=== PATIENT | male | born 1950 | race African-American/Black ===

== ENCOUNTER 2019-05-13 05:05 | Inpatient (IN) | payer MEDICARE ==
[2019-05-09 14:58] LABS: BASOPHILS # (AUTO) 0.1 (0.0-0.1); BASOPHILS % 0.8 % (0.0-1.0); EOSINOPHILS # (AUTO) 0.4 (0.0-0.4); EOSINOPHILS % 5.5 % (0.0-6.0); HEMATOCRIT 45.2 % (38.2-49.6); HEMOGLOBIN 14.6 g/dL (14.0-18.0); LYMPHOCYTES # (AUTO) 2.1 (1.0-3.2); LYMPHOCYTES % 28.5 % (18.0-39.1); MEAN CORPUSCULAR HEMOGLOBIN 28.6 pg (28-32); MEAN CORPUSCULAR HGB CONC 32.3 g/dL (31-35); MEAN CORPUSCULAR VOLUME 88.6 fL (81-99); MONOCYTES # (AUTO) 0.9 (0.2-0.8); MONOCYTES % 11.8 % (4.4-11.3); NEUTROPHILS # (AUTO) 3.9 (2.1-6.9); NEUTROPHILS % 53.1 % (38.7-80.0); PLATELET COUNT 184 x10e3/uL (140-360); RED CELL DISTRIBUTION WIDTH 13.7 % (11.7-14.4)
[2019-05-09 15:16] LABS: ANION GAP 13.1 mmol/L (8-16); BLOOD UREA NITROGEN 20 mg/dL (7-26); BUN/CREATININE RATIO 23 (6-25); CALCIUM 9.6 mg/dL (8.4-10.2); CARBON DIOXIDE 23 mmol/L (22-29); CHLORIDE 105 mmol/L (98-107); CREATININE, SERUM 0.87 mg/dL (0.72-1.25); EST GLOMERULAR FILTRATION RATE > 60 ML/MIN (60-); GLUCOSE 95 mg/dL (74-118); POTASSIUM 4.1 mmol/L (3.5-5.1); SODIUM 137 mmol/L (136-145)
--- NOTE | 2019-05-09 15:25 | Diagnostic Imaging Report ---
EXAM: CHEST 2 VIEWS, PA and lateral DATE: 05/09/2019 Time stamp on exam: 2:00 PM INDICATION: Preoperative for a urologic procedure COMPARISON: None FINDINGS: LINES/TUBES: None LUNGS: No consolidations or edema. PLEURA: No effusions or pneumothorax. HEART AND MEDIASTINUM: Normal size and contour. BONES AND SOFT TISSUES: No acute findings. Mild degenerative changes of the spine. IMPRESSION: No acute thoracic abnormality. Signed by: Dr. Nicolás Minaya DO on 05/09/2019 3:21 PM
[~2019-05-13] VITALS: Ht 170.2 cm; Wt 76.7 kg
[~2019-05-13 05:05] MED LIST: DOXAZOSIN MESYLA2 MG PO; LISINOPRIL10 MG PO; METFORMIN HCL850 MG PO
--- OUTSIDE RECORDS SUMMARY | 2019-05-13 05:13 | XMS REPORT ---
Author Author [facility] Address Unknown Phone Unavailable Care Team Providers Care Custom Motorcycle Painter Name Role Phone SHELLIE BURT Unavailable Unavailable Problems This patient has no known problems. Allergies, Adverse Reactions, Alerts This patient has no known allergies or adverse reactions. Medications This patient has no known medications. Results Test Description Test Time Test Comments Text Results Atomic Results Result Comments CHEST 2 VIEWS 2019-05-09 15:20:00 [place] [address] Patient Name: NALLELY CORREA MR #: [id number] : 1950 Age/Sex: 68/M Req #: [id number] [facility] Physician: Ordered by: SHELLIE BURT MD Report #: [id number] Location: OR Room/Bed: Procedure: [id number] DX/CHEST 2 VIEWS Exam Date: 05/09/19 Exam Time: 1400 REPORT STATUS: Signed EXAM: CHEST 2 VIEWS, PA and lateral DATE: 05/09/2019 Time stamp on exam: 2:00 PM INDICATION: Preoperative for a urologic procedure COMPARISON: None FINDINGS: LINES/TUBES: None LUNGS: No consolidations or edema. PLEURA: No effusions or pneumothorax. HEART AND MEDIASTINUM: Normal size and contour. BONES AND SOFT TISSUES: No acute findings. Mild degenerative changes of the spine. IMPRESSION: No acute thoracic abnormality. Signed by: Dr. Adis Minaya DO on 05/09/2019 3:21 PM Dictated By: ADIS MINAYA DO 1521 Transcribed By: NIEVES on 05/09/19 1521 COPY TO: SHELLIE BURT MD
[2019-05-13] MEDS ORDERED: CEFTRIAXONE SOD 1 GM/NS 50 ML 50 ML IV ONE (05:18)
[2019-05-13] MEDS ORDERED: GENTAMICIN 80MG/NS 100 ML 200 ML IV ONE (05:18)
[2019-05-13] MEDS ORDERED: IOPAMIDOL 610MG/1ML 300 MG/ML VIAL IV ONE (06:17)
[2019-05-13] MEDS ORDERED: B&O 60MG R/S 60 MG SUPP PR ONE (06:17)
[2019-05-13] MEDS ORDERED: CEFTRIAXONE SOD 1 GM/NS 50 ML 50 ML IV SCH (08:45)
[2019-05-13] MEDS ORDERED: DIPHENHYDRAMINE HCL 25 MG CAP PO PRN (08:45)
[2019-05-13] MEDS ORDERED: ACETAMINOPHEN/CODEINE 300MG - 30MG TAB PO PRN (08:45)
[2019-05-13] MEDS ORDERED: B&O 60MG R/S 60 MG SUPP PR PRN (08:45)
[2019-05-13] MEDS ORDERED: ONDANSETRON HCL INJ 2MG/ML 2ML 2 MG/ML VIAL IV PRN (08:45)
[2019-05-13] MEDS: PHENAZOPYRIDINE HCL 100 MG TAB PO SCH ×3 (09:00→18:01)
[2019-05-13] MEDS: DOCUSATE SODIUM 100 MG CAP PO SCH ×2 (09:00→18:01)
[2019-05-13] MEDS ORDERED: HYDROMORPHONE 2MG/ML 2 MG/ML ML ONE (09:04)
[2019-05-13 10:00] VITALS: BP 151/83
--- NOTE | 2019-05-13 10:00 | NUR ---
received to rm aaox3, o2 @ 2l nc, ivf infusing to r hand 20g no ss of infiltration noted, continuous bladder irrigation to 24f schmitt with traction with pink tinged urine noted, deneis pain at thsi time call light in reach will continue ot monitor
[2019-05-13 10:50] VITALS: BP 151/83
[2019-05-13 10:55] LABS: BASOPHILS % 0.3 % (0.0-1.0); EOSINOPHILS # (AUTO) 0.1 (0.0-0.4); EOSINOPHILS % 0.5 % (0.0-6.0); HEMATOCRIT 45.1 % (38.2-49.6); HEMOGLOBIN 14.8 g/dL (14.0-18.0); LYMPHOCYTES # (AUTO) 1.3 (1.0-3.2); LYMPHOCYTES % 11.6 % (18.0-39.1); MEAN CORPUSCULAR HEMOGLOBIN 29.4 pg (28-32); MEAN CORPUSCULAR HGB CONC 32.8 g/dL (31-35); MEAN CORPUSCULAR VOLUME 89.7 fL (81-99); MONOCYTES # (AUTO) 0.3 (0.2-0.8); MONOCYTES % 3.1 % (4.4-11.3); NEUTROPHILS # (AUTO) 9.4 (2.1-6.9); NEUTROPHILS % 84.1 % (38.7-80.0); PLATELET COUNT 205 x10e3/uL (140-360); RED BLOOD COUNT 5.03 x10e6/uL (4.3-5.7); RED CELL DISTRIBUTION WIDTH 13.9 % (11.7-14.4)
[2019-05-13 11:11] LABS: BLOOD UREA NITROGEN 23 mg/dL (7-26); BUN/CREATININE RATIO 22 (6-25); CALCIUM 9.2 mg/dL (8.4-10.2); CARBON DIOXIDE 28 mmol/L (22-29); CHLORIDE 106 mmol/L (98-107); CREATININE, SERUM 1.03 mg/dL (0.72-1.25); EST GLOMERULAR FILTRATION RATE > 60 ML/MIN (60-); GLUCOSE 147 mg/dL (74-118); SODIUM 142 mmol/L (136-145)
[2019-05-13] MEDS: SOD CHL 0.45%/POT CHL 20MEQ 1,000 ML IV SCH ×2 (11:36→22:09)
[2019-05-13] MEDS ORDERED: DEXTROSE 50% SYRINGE 50 ML IV PRN (11:45)
--- NOTE | 2019-05-13 11:47 | NUR ---
spoke with Dr. Jones re: admit for medical management, continue of home medications and sliding scale, new orders noted,
[2019-05-13 12:09] VITALS: BP 130/72
[2019-05-13] MEDS: INSULIN LISPRO 100 UNIT/1 ML 3ML VIAL SQ SCH ×3 (13:05→21:00)
[2019-05-13] MEDS ORDERED: SEVOFLURANE INHAL SOLN 250 ML PEN BTL ONE (13:35)
[2019-05-13] MEDS ORDERED: PROPOFOL IV EMULSION 10 MG/ML 20 ML VIAL ONE (13:35)
[2019-05-13] MEDS ORDERED: LIDOCAINE HCL 2% LOCAL INJ 5 ML SDV VIAL INJ ONE (13:35)
[2019-05-13] MEDS ORDERED: ONDANSETRON HCL INJ 2MG/ML 2ML 2 MG/ML VIAL ONE (13:35)
[2019-05-13] MEDS ORDERED: DEXAMETHASONE SOD PHOS INJ 4 MG/ML VIAL ONE (13:35)
[2019-05-13 17:08] VITALS: BP 149/78
[2019-05-13] MEDS ORDERED: FENTANYL CITRATE/PF 100MCG/2 ML INJ ONE (18:53)
[2019-05-13] MEDS ORDERED: MIDAZOLAM HCL 2 MG/2 ML VIAL ONE (18:53)
[2019-05-13 19:35] VITALS: BP 124/65
[2019-05-13 20:00] VITALS: BP 124/65
--- NOTE | 2019-05-13 21:15 | NUR ---
PATIENT CONDITION STABLE WITHOUT RESPIRATORY DISTRESS, HE DENIES PAIN. OATES CATHETER PATIENT AND INTACT, CONTINUOUS BLADDER IRRIGATION INFUSING, WITH URINE COLOR NIÑO RED WITHOUT CLOTS. CALL LIGHT WITHIN EASY REACH, FAMILY MEMBERS AT THE BEDSIDE.
[2019-05-13] MEDS: DOXAZOSIN MESYLATE 2 MG TAB PO SCH (22:08)
[2019-05-14] VITALS (7 sets, daily range): BP systolic 102–137; BP diastolic 53–67
--- NOTE | 2019-05-14 01:43 | NUR ---
PATIENT IS ASLEEP, HE'S EASY TO AROUSE. NO RESPIRATORY DISTRESS OBSERVED, HE DENIES PAIN. CALL LIGHT WITHIN EASY REACH.
--- NOTE | 2019-05-14 04:08 | NUR ---
WALKING ROUNDS MADE, PATIENT SOUNDLY ASLEEP. HE'S EASY TO AROUSE, NO RESPIRATORY DISTRESS OBSERVED. URINE COLOR LIGHT PINK WITHOUT CLOTS, CBI INFUSING ORDERED.
[2019-05-14] MEDS ORDERED: CEFTRIAXONE SOD 1 GM/NS 50 ML 50 ML IV SCH (06:00)
[2019-05-14 06:30] LABS: ANION GAP 12.1 mmol/L (8-16); BLOOD UREA NITROGEN 16 mg/dL (7-26); BUN/CREATININE RATIO 17 (6-25); CALCIUM 9.2 mg/dL (8.4-10.2); CARBON DIOXIDE 24 mmol/L (22-29); CHLORIDE 105 mmol/L (98-107); CREATININE, SERUM 0.96 mg/dL (0.72-1.25); EST GLOMERULAR FILTRATION RATE > 60 ML/MIN (60-); GLUCOSE 152 mg/dL (74-118); POTASSIUM 4.1 mmol/L (3.5-5.1); SODIUM 137 mmol/L (136-145)
[2019-05-14 06:39] LABS: BASOPHILS % 0.1 % (0.0-1.0); EOSINOPHILS # (AUTO) 0.1 (0.0-0.4); EOSINOPHILS % 0.4 % (0.0-6.0); HEMATOCRIT 43.7 % (38.2-49.6); HEMOGLOBIN 14.3 g/dL (14.0-18.0); LYMPHOCYTES # (AUTO) 1.9 (1.0-3.2); LYMPHOCYTES % 14.2 % (18.0-39.1); MEAN CORPUSCULAR HEMOGLOBIN 28.9 pg (28-32); MEAN CORPUSCULAR HGB CONC 32.7 g/dL (31-35); MEAN CORPUSCULAR VOLUME 88.5 fL (81-99); MONOCYTES # (AUTO) 1.5 (0.2-0.8); MONOCYTES % 10.7 % (4.4-11.3); NEUTROPHILS # (AUTO) 10.1 (2.1-6.9); NEUTROPHILS % 74.2 % (38.7-80.0); PLATELET COUNT 192 x10e3/uL (140-360); RED BLOOD COUNT 4.94 x10e6/uL (4.3-5.7); RED CELL DISTRIBUTION WIDTH 14.1 % (11.7-14.4)
--- NOTE | 2019-05-14 09:42 | History and Physical ---
SURGEON: Dr. Rai Wright. The patient is status post TURP procedures for urinary retention and microscopic hematuria. HISTORY OF PRESENT ILLNESS: The patient is a 68-year-old male with longstanding enlarged prostate with urinary retention. The patient is status post TURP procedure done by Dr. Rai Wright. Postoperatively, the patient is stable. No significant pain. PAST MEDICAL HISTORY: Enlarged prostate, osteoarthritis, diabetes type 2, diabetic neuropathy. PAST SURGICAL HISTORY: Hip surgery, colonoscopy. SOCIAL HISTORY: The patient does not smoke or use alcohol. No recreational drugs. ALLERGIES: NO KNOWN ALLERGIES. HOME MEDICATIONS: List is reviewed. REVIEW OF SYSTEMS: Stable. PHYSICAL EXAMINATION: VITAL SIGNS: Temperature is 98, blood pressure 102/59, pulse rate 71, respiration 18. GENERAL: The patient is not in acute distress. He is awake. HEENT: Normocephalic, atraumatic. Sclerae anicteric. NECK: Supple grossly. PULMONARY: Diminished breath sounds without any wheezing. CARDIOVASCULAR: S1, S2. Regular rate and rhythm. ABDOMEN: Soft. Unremarkable. Liriano catheter in place. EXTREMITIES: No cyanosis or edema. NEUROLOGIC: No focal deficit. LABORATORY DATA: Sodium is 137, potassium 4.1, chloride 105, bicarb 24, BUN 16, creatinine 0.9, glucose 152. WBC is 13.5, hemoglobin 14.3, hematocrit 42.7, platelets 192. IMPRESSION: 1. Status post TURP. 2. Urinary retention with enlarged prostate. 3. Diabetes type 2, on oral medication. 4. Hypertension. 5. Postoperative leukocytosis, most likely reactive. PLAN: Continue to monitor the patient closely. Continue with continuous irrigation of the urinary bladder. Home medication resumed. Insulin sliding scale coverage. We will monitor the patient closely. MD DAT Lang/MODL /[id number]
[2019-05-14] MEDS: INSULIN LISPRO 100 UNIT/1 ML 3ML VIAL SQ SCH ×4 (10:00→21:00)
[2019-05-14] MEDS: LISINOPRIL 10 MG TAB PO SCH (10:48)
[2019-05-14] MEDS: METFORMIN HCL 500 MG TAB PO SCH (10:48)
[2019-05-14] MEDS: PHENAZOPYRIDINE HCL 100 MG TAB PO SCH ×3 (10:49→17:24)
[2019-05-14] MEDS: DOCUSATE SODIUM 100 MG CAP PO SCH ×2 (10:49→17:24)
--- NOTE | 2019-05-14 14:45 | NUR ---
Visit made by the Spiritual Care Department Pastoral Visitor, Hailee Amaya. PV provided pastoral presence, prayer, hospitality, and supportive listening. Pastoral Visitor informed pt/family of the scope of Rn Telephonic Services and availability. MOHIT OSULLIVAN Rear Load Truck Driver Spiritual Care Department O: [phone] Pager: [phone] ([phone] number calling from)
--- NOTE | 2019-05-14 20:00 | NUR ---
INITIAL ASSESSMENT COMPLETE, CALL LIGHT IN REACH, FAMILY AT BEDSIDE, CONTINUOUS IRRIGATION CONTINUES, OATES CATH IN PLACE DRAINING, CLEAR, ORANGE URINE, NO PAIN NOTED, VS STABLE, TOLD TO CALL FOR NEEDS
[2019-05-14] MEDS: DOXAZOSIN MESYLATE 2 MG TAB PO SCH (20:56)
[2019-05-15] VITALS (8 sets, daily range): BP systolic 108–121; BP diastolic 56–84
--- NOTE | 2019-05-15 00:20 | NUR ---
PT IN BED, CONTINUOUS IRRIGATION CONTINUES, VS STABLE, NO DISTRESS NOTED, OATES DRAINING
[2019-05-15 06:12] LABS: BASOPHILS # (AUTO) 0.1 (0.0-0.1); BASOPHILS % 0.4 % (0.0-1.0); EOSINOPHILS # (AUTO) 0.2 (0.0-0.4); EOSINOPHILS % 1.5 % (0.0-6.0); HEMATOCRIT 41.6 % (38.2-49.6); HEMOGLOBIN 13.8 g/dL (14.0-18.0); LYMPHOCYTES # (AUTO) 1.9 (1.0-3.2); LYMPHOCYTES % 16.2 % (18.0-39.1); MEAN CORPUSCULAR HEMOGLOBIN 29.2 pg (28-32); MEAN CORPUSCULAR HGB CONC 33.2 g/dL (31-35); MEAN CORPUSCULAR VOLUME 87.9 fL (81-99); MONOCYTES # (AUTO) 1.4 (0.2-0.8); MONOCYTES % 12.2 % (4.4-11.3); NEUTROPHILS % 69.1 % (38.7-80.0); PLATELET COUNT 168 x10e3/uL (140-360); RED BLOOD COUNT 4.73 x10e6/uL (4.3-5.7)
[2019-05-15 06:29] LABS: ANION GAP 12.2 mmol/L (8-16); BLOOD UREA NITROGEN 17 mg/dL (7-26); BUN/CREATININE RATIO 17 (6-25); CALCIUM 8.8 mg/dL (8.4-10.2); CARBON DIOXIDE 23 mmol/L (22-29); CHLORIDE 105 mmol/L (98-107); CREATININE, SERUM 1.03 mg/dL (0.72-1.25); EST GLOMERULAR FILTRATION RATE > 60 ML/MIN (60-); GLUCOSE 137 mg/dL (74-118); POTASSIUM 4.2 mmol/L (3.5-5.1); SODIUM 136 mmol/L (136-145)
--- NOTE | 2019-05-15 07:04 | NUR ---
received pt lying in bed with eyes closed, resp even and unlabored. call light within reach.
[2019-05-15] MEDS: INSULIN LISPRO 100 UNIT/1 ML 3ML VIAL SQ SCH ×4 (07:30→21:50)
[2019-05-15] MEDS: LISINOPRIL 10 MG TAB PO SCH (09:02)
[2019-05-15] MEDS: DOCUSATE SODIUM 100 MG CAP PO SCH ×2 (09:02→17:06)
[2019-05-15] MEDS: METFORMIN HCL 500 MG TAB PO SCH (09:02)
[2019-05-15] MEDS ORDERED: ONDANSETRON HCL 4 MG ORAL DISINTEGRATING TAB PO PRN (12:30)
[2019-05-15] MEDS ORDERED: CEFTRIAXONE SOD 1 GM/NS 50 ML 50 ML IV SCH (13:45)
--- NOTE | 2019-05-15 15:51 | NUR ---
EDUCATED ABOUT IMM, SIGNED, FILED IN CHART, WITH COPY LEFT WITH FAMILY AT BEDSIDE.
[2019-05-15] MEDS: DOXAZOSIN MESYLATE 2 MG TAB PO SCH (21:50)
[2019-05-16] VITALS (7 sets, daily range): BP systolic 111–138; BP diastolic 63–77
[2019-05-16 06:06] LABS: BASOPHILS # (AUTO) 0.1 (0.0-0.1); BASOPHILS % 0.6 % (0.0-1.0); EOSINOPHILS # (AUTO) 0.3 (0.0-0.4); EOSINOPHILS % 2.5 % (0.0-6.0); HEMATOCRIT 41.5 % (38.2-49.6); HEMOGLOBIN 13.5 g/dL (14.0-18.0); LYMPHOCYTES % 16.2 % (18.0-39.1); MEAN CORPUSCULAR HEMOGLOBIN 28.9 pg (28-32); MEAN CORPUSCULAR HGB CONC 32.5 g/dL (31-35); MEAN CORPUSCULAR VOLUME 88.9 fL (81-99); MONOCYTES # (AUTO) 1.6 (0.2-0.8); MONOCYTES % 13.5 % (4.4-11.3); NEUTROPHILS # (AUTO) 8.1 (2.1-6.9); NEUTROPHILS % 66.7 % (38.7-80.0); PLATELET COUNT 164 x10e3/uL (140-360); RED BLOOD COUNT 4.67 x10e6/uL (4.3-5.7); RED CELL DISTRIBUTION WIDTH 13.7 % (11.7-14.4)
[2019-05-16 06:15] LABS: ANION GAP 12.5 mmol/L (8-16); BLOOD UREA NITROGEN 14 mg/dL (7-26); BUN/CREATININE RATIO 14 (6-25); CALCIUM 9.3 mg/dL (8.4-10.2); CARBON DIOXIDE 26 mmol/L (22-29); CHLORIDE 103 mmol/L (98-107); CREATININE, SERUM 0.98 mg/dL (0.72-1.25); EST GLOMERULAR FILTRATION RATE > 60 ML/MIN (60-); GLUCOSE 141 mg/dL (74-118); POTASSIUM 4.5 mmol/L (3.5-5.1); SODIUM 137 mmol/L (136-145)
--- NOTE | 2019-05-16 07:05 | NUR ---
Report given to oncoming nurse,walking rounds made.pt resting in bed with no s/s of distress.
--- NOTE | 2019-05-16 07:05 | NUR ---
received pt lying in bed with eyes open and TV on. Resp even and unlabored. denies pain. bed in low and locked position. call light within reach.
[2019-05-16] MEDS: LISINOPRIL 10 MG TAB PO SCH (08:20)
[2019-05-16] MEDS: DOCUSATE SODIUM 100 MG CAP PO SCH ×2 (08:20→16:43)
[2019-05-16] MEDS: METFORMIN HCL 500 MG TAB PO SCH (08:20)
[2019-05-16] MEDS: INSULIN LISPRO 100 UNIT/1 ML 3ML VIAL SQ SCH ×4 (09:00→20:42)
[2019-05-16] MEDS ORDERED: MAGNESIUM HYDROXIDE 30 ML UDC PO PRN (10:00)
[2019-05-16 10:42] LABS: ANISOCYTOSIS MODERATE; EOSINOPHILS % (MANUAL) 1 % (0-7); LYMPHOCYTES % (MANUAL) 16 % (19-48); MONOCYTES % (MANUAL) 9 % (3.4-9.0); NEUTROPHILS % (MANUAL) 74 % (40-74); PLATELET ESTIMATE ADEQUATE; RBC MORPHOLOGY COMMENT NORMAL
[2019-05-16 10:43] LABS: PLATELET MORPHOLOGY COMMENT NORMAL
[2019-05-16] MEDS ORDERED: CEFTRIAXONE SOD 1 GM/NS 50 ML 50 ML IV SCH (14:00)
--- NOTE | 2019-05-16 16:00 | NUR ---
per patient may d/c home when ok with . per urine series x4-5 samples and if urine clear may d/c home today.
--- NOTE | 2019-05-16 19:11 | NUR ---
RECEIVED PT RESTING IN BED WITH NO S/S OF DISTRESS.RESPIRATIONS EVEN/NON LABORED.PT VOIDED TWICE AFTER THE OATES DC.COLLECTING SERIAL URINE AT THIS TIME.URINE APPEARS STRAWBERRY COLOR,NOT CLEAR AT THIS TIME.ENCOURAGED PT TO DRINK FLUIDS.CALL LIGHT WITHIN EASY REACH.WILL CONTINUE TO MONITOR.
--- NOTE | 2019-05-16 19:11 | NUR ---
report given to oncoming nurse, bedside rounds done.
[2019-05-16] MEDS: DOXAZOSIN MESYLATE 2 MG TAB PO SCH (20:36)
--- NOTE | 2019-05-16 21:37 | NUR ---
SPOKE WITH DR BURT NOTIFIED THAT THE MOST RECENT URINE SAMPLE APPEARS LIGHT PINKISH IN COLOR WITH NO CLOTS.ORDER RECEIVED TO DC PATIENT,AND PER DR BURT PT HAS TO FOLLOW UP WITH DR BURT IN ABOUT A MONTH.
--- NOTE | 2019-05-16 22:15 | NUR ---
PT'S IV CATH TAKEN OUT TO RIGHT HAND 20G WITH CATH TIP INTACT UPON REMOVAL.DRESSING APPLIED.DC INSTRUCTIONS AND PRESCRIPTION GIVEN TO PT,COPY OF PRESCRIPTION PLACED IN CHART. AT BEDSIDE.
--- NOTE | 2019-05-16 22:25 | NUR ---
PT WHEELED OUT TO FRONT LOBBY AND TO PRIVATE AUTO AT THIS TIME IN STABLE CONDITION WITH ALL PERSONAL BELONGINGS.
--- NOTE | 2019-08-07 05:38 | Operative Report ---
DATE OF PROCEDURE: 05/13/2019 SURGEON: Rai Wright MD PREOPERATIVE DIAGNOSES: 1. Obstructive benign prostatic hyperplasia. 2. Incomplete bladder emptying. POSTOPERATIVE DIAGNOSES: 1. Obstructive benign prostatic hyperplasia. 2. Incomplete bladder emptying. OPERATIONS PERFORMED: 1. Cystourethroscopy with bilateral ureteral catheterization and retrograde ureteropyelography (separate procedure performed for the incomplete bladder emptying). 2. Interpretation of retrograde ureteropyelography. 3. Supervision of fluoroscopy, no radiologist present. 4. Cystourethroscopy with transurethral resection of the prostate utilizing the plasma button electrode. ANESTHESIA: General. COMPLICATIONS: None. CLINICAL SUMMARY: Dustin Anglin is a 68-year-old man with obstructive BPH. We have measured his prostate at approximately 89 mL. He has failed medical management and desires to proceed with transurethral resection. He is aware of the risks of bleeding, infection, injury to adjacent structures, incontinence, impotence, retrograde ejaculation, need for additional procedures and elected to proceed. OPERATIVE PROCEDURE IN DETAIL: Informed consent was verified. Dustin Anglin was properly identified, taken to the operating room, placed on the cystoscopy table in supine position. Anesthesia was uneventfully begun. The patient was then carefully and gently repositioned in dorsal lithotomy position with all pressure points well padded. His genitalia were prepared and draped in usual sterile fashion. The cystoscope sheath with the visual obturator in place, was atraumatically inserted into the patient's urethra, it was guided down the unremarkable distal urethra through the normal sphincteric region through the prostate bed, which was significant for trilobar prostatic hypertrophy with a large ball-valving median lobe and visual obstruction. Kissing lateral lobes were also noted. Panendoscopy of the bladder revealed trabeculations but no tumors, no stones, no suspicious lesions, normally positioned configured ureteral orifices were identified. An 8-Hungarian catheter was used to cannulate each ureter and retrograde ureteropyelograms were performed. Interpretation of retrograde ureteropyelography contrast was instilled in retrograde fashion bilaterally. There were significant hardware noted from prior pelvic fracture. There was J-hooking that was a rather traumatic noted bilaterally. There was fullness of both upper collecting system with unobstructed drainage was observed. There were no suspicious lesions, there were no tumors, there were no filling defects. A bifid collecting system was identified. Ureteral tortuosity was also present. The cystoscope was withdrawn atraumatically. We placed a continuous irrigation resection system. We then proceeded with utilizing the plasma button electrode to vaporize the prostate from the bladder neck tube, but never passed the verumontanum. First we eliminated the median lobe and once the median lobe was completely eliminated, while taking care to avoid injuring the ureteral orifices, we then proceeded with eliminating both lateral lobes from the bladder neck tube, but never passed the verumontanum and down the surgical capsule. A wide open prostatic channel was achieved. Excellent hemostasis was achieved as well. The resectoscope was withdrawn. Continuous irrigation Liriano catheter was placed. It was irrigated to and fro to ensure it worked properly. Continuous irrigation was begun. A belladonna and opium suppository were placed revealing a larger at least 50 g prostate, smooth and non-fluctuant without any nodules. The patient was then uneventfully reversed from anesthesia and taken to recovery room in stable condition. There were no complications to the procedure. He tolerated the procedure well. We will proceed with routine postoperative care and ongoing urological followup. Rai Wright MD [place]/MODL /[id number] cc: Dr. Herbert Booth
== END 2019-05-16 22:26 | disposition home or self-care (01) | DRG 713 ==
LOC: OR 05:05 → PACU V 08:38 → MED/SURG 09:49
PROVIDERS: ADMIT Internal Medicine; ATTEND Internal Medicine
PROC: BT141ZZ Fluoroscopy of Kidneys, Ureters and Bladder using Low Osmolar Contrast (ICD-10-PCS; 2019-05-13)
PROC: 0VB08ZZ Excision of Prostate, Via Natural or Artificial Opening Endoscopic (ICD-10-PCS; principal; 2019-05-13 07:00)
PROC: 0T788ZZ Dilation of Bilateral Ureters, Via Natural or Artificial Opening Endoscopic (ICD-10-PCS; 2019-05-13 07:00)
DX: N40.1 Benign prostatic hyperplasia with lower urinary tract symptoms (principal); N13.8 Other obstructive and reflux uropathy; R33.8 Other retention of urine; I10 Essential (primary) hypertension; R39.14 Feeling of incomplete bladder emptying; M19.90 Unspecified osteoarthritis, unspecified site; E11.40 Type 2 diabetes mellitus with diabetic neuropathy, unspecified; Z79.4 Long term (current) use of insulin; D72.828 Other elevated white blood cell count
CPT/HCPCS: 36415; 71046; 74420; 80048; 82948; 83735; 85025; 93005; 96367; J0696; J1100; J1580; J2001; J2250; J2405; J3010